=== PATIENT | female | born 1965 | race Caucasian/White ===

== ENCOUNTER → 2018-04-08 | Outpatient (CLI) | payer BC ==
--- NOTE | 2018-04-10 00:43 | PCVCIMAG ---
APPROVED REPORT Study performed: 04/08/2018 14:58:18 Exam: Stress Echocardiogram Indication: Chest pain , Palpitations Patient Location: Echo lab Stress Nurse: Shakira Burgos RN Room #: 2 Status: routine Ht: 5 ft 6 in HR: 99 bpm BP: 120/82 mmHg Rhythm: NSR Medical History Medical History: No history of CAD Pretest Chest Pain Characteristics: No chest pain Exercise History: Physically active Procedure The patient underwent an Exercise Stress Test using the Doug Protocol. Blood pressure, heart rate, and EKG were monitored. An Echocardiogram was performed by roofing technician in four stages in quad fashion. At peak stress, four selected images were obtained and placed side by side with resting images for comparison. Stress Test Details Stress Test: Exercise stress testing was performed using a Doug protocol. HR Resting HR: 86 bpmMax Heart Rate (APMHR): 168 bpm Max HR Achieved: 184 bpmTarget HR (85% APMHR): 142 bpm % of APMHR: 109 Recovery HR: 113 bpm HR response to stress: Normal HR response to stress BP Resting BP: 120/82 mmHg Max BP: 134/70 mmHg Recovery BP: 110/64 mmHg BP response to stress: Normal blood pressure response to stress. ECG Resting ECG: Sinus Rhythm Stress ECG: Sinus Rhythm ST Change: Non-ischemic Arrhythmia: Occasional PVCs Recovery ECG: Sinus Rhythm Recovery ST Change: Non-ischemic Recovery Arrhythmia: Rare PVCs Clinical Reason for Termination: Maximal effort Stress Symptoms: fatigue Exercise duration: 13 min 07 sec Highest Stage Achieved: Stage 5: 5.0 mph at 18% grade. Exercise capacity: 17.2 METs Overall Exercise Capacity for Age: Good Scale: Active Angina Score: None No complications. Stress ECG Conclusion The patient exercised according to the DOUG protocol for 13:07 mins; achieving a work level of 17.2 METS. The resting heart rate of 86 bpm lesli to a maximum heart rate of 184 bpm. This value represents 109% of the maximal, age-predicted heart rate. The resting blood pressure of 120/82 mmHg, lesli to a maximum blood pressure of 134/70 mmHg. The exercise test was stopped due to fatigue. Pre-Stress Echo The resting Echocardiogram showed normal left ventricular contractility with an estimated Ejection Fraction of about 55-60%. Normal wall motion in all segments on baseline images. Post-Stress Echo The stress Echocardiogram showed normal left ventricular contractility with an estimated Ejection Fraction of about 65-70%. Normal augmentation of wall motion in all segments on post stress images. Clinical No clinical or ECG evidence for ischemia. Conclusion Clinical Response: Non-ischemic Exercise Capacity: Superior Stress ECG Response: Non-ischemic Stress Echo Images: Non-ischemic No clinical, EKG or echocardiographic evidence for ischemia. No echocardiographic evidence for exercise induced ischemia. Normal stress echocardiogram with maximal exercise stress. 1. Low Risk Study No prior study available for comparison. <Conclusion> No clinical, EKG or echocardiographic evidence for ischemia. No echocardiographic evidence for exercise induced ischemia. Normal stress echocardiogram with maximal exercise stress. 1. Low Risk Study
== END | disposition home or self-care (01) ==
LOC: PCVCIMAG 15:21
PROVIDERS: ATTEND Internal Medicine
DX: R00.2 Palpitations (principal); R07.9 Chest pain, unspecified
CPT/HCPCS: 93325; 93351